=== PATIENT | female | born 1965 ===

== ENCOUNTER 2017-01-26 11:06 | Outpatient (CLI) | payer BC | END 2017-01-26 11:07 | disposition home or self-care (01) | LOC: LABLEX 11:06 | PROVIDERS: ATTEND Family Medicine | DX: Z00.00 Encounter for general adult medical examination without abnormal findings (principal); Z12.4 Encounter for screening for malignant neoplasm of cervix ==

== ENCOUNTER 2017-01-26 11:14 | Outpatient (CLI) | payer BC ==
[2017-01-26 16:35] LABS: ALT (SGPT) 15 U/L (8-55); AST (SGOT) 18 U/L (5-34); Albumin 4.6 g/dL (3.5-5.0); Alkaline Phosphatase 51 U/L (40-150); Anion Gap 11 mmol/L (10-20); BUN (Urea Nitrogen) 18 mg/dL (9.8-20.1); Calc. Creatinine Clearance 0 mL/min (70-130); Calcium 9.7 mg/dL (7.8-10.44); Carbon Dioxide 31 mmol/L (22-29); Cardiac Risk 3.4 (Less than 4.5); Chloride 103 mmol/L (98-107); Cholesterol 220 mg/dL (< 200 Desired); Estimated GFR-MDRD 75; Glucose 93 mg/dL (70-105); HDL Cholesterol 64 mg/dL (>60 Neg Risk); LDL Cholesterol, Calculated 141 mg/dL; Protein, Total 7.6 g/dL (6.0-8.3); Sodium 141 mmol/L (136-145); Triglycerides 73 mg/dL (Less than 150)
[2017-01-26 16:50] LABS: Thyroid Stimulating Hormone 1.6249 uIU/mL (0.35-4.94); Vitamin D, 25 Hydroxy 36.8 ng/mL (> 30.0)
== END 2017-01-26 11:15 | disposition home or self-care (01) ==
LOC: LABLEX 11:14
PROVIDERS: ATTEND Family Medicine
DX: Z00.00 Encounter for general adult medical examination without abnormal findings (principal)
CPT/HCPCS: 80053; 80061; 82306; 84443